=== PATIENT | male | born 1970 | race African-American/Black ===

== ENCOUNTER 2017-08-19 00:50 | Emergency (ER) | payer OTHER ==
[~2017-08-19] VITALS: Ht 177.8 cm; Wt 92.8 kg
[2017-08-19 01:27] LABS: HEMATOCRIT 41.4 % (38.0-50.0); HEMOGLOBIN 14.4 G/DL (12.5-16.6); MCHC 34.8 G/DL (30.0-36.0); MCV 86.3 FL (86-99); PLATELET COUNT 221 K/uL (156-360); RBC DIS.WIDTH-CV 13.5 % (11.8-14.6); WHITE BLOOD COUNT 5.9 K/uL (4.1-10.2)
[2017-08-19 01:35] LABS: CHLORIDE 103 mEq/L (99-109); SODIUM 138 mEq/L (136-147)
[2017-08-19 01:36] LABS: GLUCOSE 96 mg/dL (70-99)
[2017-08-19 01:40] LABS: CREATININE 1.3 mg/dL (0.6-1.3); GFR ESTIMATE (CALCULATED) > 59 mL/min/ (58.99-99999)
[2017-08-19 01:41] LABS: UREA NITROGEN (BUN) 11 mg/dL (9-23)
[2017-08-19 01:47] LABS: TROP-I INTERPRETATION NEGATIVE; TROPONIN-I 0.02 ng/mL (0.0-0.30)
[2017-08-19 03:09] VITALS: BP 181/97
== END 2017-08-19 03:10 ==
LOC: EME → EDBD 00:50 → EME 00:50
DX: I10 Essential (primary) hypertension (principal); R51 Headache; R06.00 Dyspnea, unspecified; Z87.891 Personal history of nicotine dependence
CPT/HCPCS: 71046; 80048; 84484; 85027; 93005; 99281; 99285